=== PATIENT | male | born 1980 | race Hispanic/Latino ===

== ENCOUNTER 2024-04-22 16:35 | Emergency (ER) | payer OTHER, MEDICARE ==
[~2024-04-22] VITALS: Ht 177.8 cm; Wt 113.4 kg
[2024-04-22] MEDS: KETOROLAC 15MG/ML VIAL (15MG/ML) IM ONE (19:14)
[2024-04-22 19:16] VITALS: BP 121/68; PULSE 82; RESP 20; O2SAT 98
== END 2024-04-22 19:21 | disposition home or self-care (01) ==
LOC: EDH 16:35
DX: M79.662 Pain in left lower leg (principal); F31.9 Bipolar disorder, unspecified; F41.9 Anxiety disorder, unspecified
CPT/HCPCS: 99285; 93971; 96372; J1885